=== PATIENT | female | born 1960 | race Caucasian/White ===

== ENCOUNTER 2017-03-22 21:18 | Emergency (ER) | payer MEDICARE, MEDICAID ==
[~2017-03-22] VITALS: Ht 165.1 cm; Wt 75.7 kg
--- NOTE | 2017-03-22 21:32 | NUR ---
PT AMBULATORY TO ER BED 10. C/O BILAT FLANK PAIN R/T LOWER ABDOMEN SINCE YESTERDAY. DENIES N/V/D. URGENCY BUT URINATING LESS. GOWNED AND PLACED ON MONITOR. NAD NOTED. AWAITING MD SYLVESTER.
--- NOTE | 2017-03-22 21:32 | NUR ---
URINE SAMPLE COLLECTED. SENT TO LAB.
--- NOTE | 2017-03-22 22:05 | NUR ---
JERZY EVANS AT BEDSIDE FOR EVAL.
[2017-03-22 22:54] LABS: APPEARANCE,URINE CLEAR (CLEAR); BILIRUBIN,URINE NEGATIVE (NEGATIVE); BLOOD, URINE 1+ Ery/uL (NEGATIVE); COLOR,URINE YELLOW (YELLOW); KETONES,URINE NEGATIVE (NEGATIVE); LEUKOCYTE ESTERASE ,URINE NEGATIVE (NEGATIVE); NITRITE, URINE NEGATIVE (NEGATIVE); PH,URINE 5.5 (5.0-8.0); PROTEIN,URINE NEGATIVE (NEGATIVE); UGLUCOSE NEGATIVE (NEGATIVE); UROBILINOGEN,URINE 0.2 EU/dL (0.2)
[2017-03-22 22:59] LABS: BACTERIA,URINE None seen /HPF (None Seen); MUCUS,URINE Few /LPF (None Seen); SQUAMOUS EPITHELIAL CELL,UR Few /HPF (None Seen)
--- NOTE | 2017-03-22 23:17 | NUR ---
Patient discharged to home in stable condition. Written and verbal after care instructions given. Patient verbalizes understanding of instruction.
[2017-03-22 23:18] VITALS: BP 132/77
== END 2017-03-22 23:19 | disposition home or self-care (01) ==
LOC: ER 21:18
DX: N39.0 Urinary tract infection, site not specified (principal)
CPT/HCPCS: 81001; 87086; 99284; A4606; 81000-TC; Z7610

== ENCOUNTER 2017-09-12 20:47 | Emergency (ER) | payer MEDICARE, MEDICAID ==
[~2017-09-12] VITALS: Ht 160 cm; Wt 77.1 kg
--- NOTE | 2017-09-12 20:52 | NUR ---
PT AMBULATORY TO ER BED 09. PRESENTS W/ R EYE SWELLING X THIS AM. DENIES LOSS OF VISION/ BLURRING. WENT TO URGENT CARE AND WAS PRESCRIBED ANTIBIOTICS. NOT FEELING WELL. AND THINKS ITS GETTING WORST. AWAITING MD SYLVESTER.
--- NOTE | 2017-09-12 22:50 | NUR ---
JERZY EVANS AT BEDSIDE FOR EVAL.
--- NOTE | 2017-09-12 23:03 | NUR ---
DR MUSA AT BEDSIDE FOR EVAL.
[2017-09-12] MEDS ORDERED: CEFTRIAXONE 500 MG VIAL ONE (23:06)
[2017-09-12] MEDS ORDERED: LIDOCAINE /MPF 1% VIAL 5 ML VIAL ONE (23:06)
[2017-09-12] MEDS ORDERED: CEFTRIAXONE 500 MG VIAL IM ONE (23:30)
--- NOTE | 2017-09-12 23:30 | NUR ---
Patient discharged to home in stable condition. Written and verbal after care instructions given. Patient verbalizes understanding of instruction.
[2017-09-12 23:31] VITALS: BP 132/80
== END 2017-09-12 23:32 | disposition home or self-care (01) ==
LOC: ER 20:52
DX: H05.011 Cellulitis of right orbit (principal)
CPT/HCPCS: 96372; 99283; A4606; J0696; J3490; Z7610

== ENCOUNTER → 2020-08-22 | Emergency (ER) | payer MEDICARE, OTHER ==
[~2020-08-22] VITALS: Ht 152.4 cm; Wt 77.1 kg
[~2020-08-22] MED LIST: DEXAMETHASONE SOD PHOSPHATE 10 MG/ML VIAL IV ONE; DEXAMETHASONE SOD PHOSPHATE 10 MG/ML VIAL ONE; IV NS 0.9% 500 ML IV ONE; KETOROLAC TROMETHAMINE 15 MG/ML VIAL ONE; KETOROLAC TROMETHAMINE INJ 30 MG/ML VIAL IV ONE
[2020-08-22 11:57] LABS: BASOPHILS % (AUTO) 0.7 % (0.0-2.0); EOSINOPHILS % (AUTO) 0.2 % (0.0-6.0); HEMATOCRIT 41 % (33-45); HEMOGLOBIN 13.2 g/dL (11.5-14.8); LYMPHOCYTES # (AUTO) 1.7 /CMM (0.8-4.8); LYMPHOCYTES % (AUTO) 25.4 % (20.0-44.0); MEAN CORPUSCULAR HGB CONC 33 g/dl (31.0-36.0); MEAN CORPUSCULAR VOLUME 82 fL (82-100); MONOCYTES # (AUTO) 0.5 /CMM (0.1-1.30); MONOCYTES % (AUTO) 7.6 % (2.0-12.0); NEUTROPHILS # (AUTO) 4.3 /CMM (1.8-8.9); NEUTROPHILS % (AUTO) 66.1 % (43.0-81.0); PLATELET COUNT (AUTO) 273 /CMM (150-450); RED BLOOD CELL COUNT(AUTO) 4.91 MIL/uL (4.0-5.2); WHITE BLOOD COUNT (AUTO) 6.5 K/uL (4.3-11.0)
--- NOTE | 2020-08-22 12:00 | NUR ---
pt rec'd to er c/o covid 19 fever weakness eprez for 8 days iv started 20g left ac . monitor applied meds given per md orders
[2020-08-22 12:01] VITALS: BP 166/74
[2020-08-22 12:10] LABS: ALBUMIN 3.2 g/dL (3.4-5.0); BILIRUBIN,TOTAL 0.4 mg/dL (0.2-1.0); CALCIUM, SERUM 8.8 mg/dL (8.5-10.1); CREATININE 0.9 mg/dL (0.6-1.3); POTASSIUM 3.8 mmol/L (3.5-5.1); TOTAL PROTEIN, SERUM 7.9 g/dL (6.4-8.2)
== END | disposition home or self-care (01) ==
LOC: ER 11:11
DX: U07.1 COVID-19 (principal); E78.5 Hyperlipidemia, unspecified
CPT/HCPCS: 36415; 71045; 80053; 85025; 96374; 96375; 99284; J1100; J1885; J7030

== ENCOUNTER 2021-06-27 10:25 | Emergency (ER) | payer MEDICARE, OTHER ==
[~2021-06-27] VITALS: Ht 162.6 cm; Wt 77.1 kg
[2021-06-27 10:52] VITALS: BP 158/88
--- NOTE | 2021-06-27 11:11 | NUR ---
COVID ANTIGEN/PCR DONE AND SENT
--- NOTE | 2021-06-27 11:26 | NUR ---
WET END HELPER AT BEDSIDE
--- NOTE | 2021-06-27 12:20 | NUR ---
PT. VERBALIZED UNDERSTANDING OF AFTERCARE INSTRUCTIONS.Patient discharged to home in stable condition. Written and verbal after care instructions given. Patient verbalizes understanding of instruction.
== END 2021-06-27 12:21 | disposition home or self-care (01) ==
LOC: ER 10:26
DX: J06.9 Acute upper respiratory infection, unspecified (principal); Z20.822 Contact with and (suspected) exposure to COVID-19; I10 Essential (primary) hypertension
CPT/HCPCS: 71045-TC; C9803; U0003

== ENCOUNTER 2022-11-29 19:30 | Emergency (ER) | payer MEDICARE, OTHER ==
[~2022-11-29] VITALS: Ht 162.6 cm; Wt 81.6 kg
--- NOTE | 2022-11-29 20:24 | NUR ---
BIBS FOR BILATERAL FEET INJURY S/P FALL. PT A/OX4. TOLERATING R/A WELL WITH NO RESP DISTRESS. SAFETY MEASURES IN PLACE. PT AMBULATORY WITH STEADY GAIT.
--- NOTE | 2022-11-29 22:05 | NUR ---
Patient discharged to home in stable condition. Written and verbal after care instructions given. Patient verbalizes understanding of instruction. Pt ambulatory with a steady gait
[2022-11-29 22:10] VITALS: BP 129/79
== END 2022-11-29 22:05 | disposition home or self-care (01) ==
LOC: ER 19:31
DX: S90.122A Contusion of left lesser toe(s) without damage to nail, initial encounter (principal); S90.121A Contusion of right lesser toe(s) without damage to nail, initial encounter; E78.5 Hyperlipidemia, unspecified; W10.9XXA Fall (on) (from) unspecified stairs and steps, initial encounter; Y93.89 Activity, other specified; Y92.89 Other specified places as the place of occurrence of the external cause; Y99.8 Other external cause status
CPT/HCPCS: 73630-TC